=== PATIENT | female | born 1950 | race Caucasian/White ===

== ENCOUNTER → 2017-01-23 | Outpatient (CLI) | payer BC ==
[~2017-01-23] MED LIST: ALEN70TA2 PO; AMLO10TA4 PO; ASPI-557 PO; BUTA1CAP16 PO; CALC-52 PO; EZET1TAB2 PO; LEVO50TA4 PO; MECL-103 PO; MOME17SP2 EA NOSTRIL; MULT-933 PO; NAPR220T24 PO; OMEP20CA10 PO; VALS1TAB6 PO; [UNRECOGNIZED DRUG - CODE] PO
== END ==
LOC: WC.BC 12:42
DX: Z12.31 Encounter for screening mammogram for malignant neoplasm of breast (principal); N64.59 Other signs and symptoms in breast
CPT/HCPCS: 77063; G0202